=== PATIENT | male | born 1965 | race African-American/Black ===

== ENCOUNTER 2017-10-31 15:38 | Emergency (ER) | payer MEDICAID, OTHER ==
[~2017-10-31] VITALS: Ht 167.6 cm; Wt 54.5 kg
[2017-10-31] MEDS ORDERED: 0.9% SODIUM CHLORIDE 5 ML NEB SOLUTION NEB ONE (17:15)
[2017-10-31] MEDS ORDERED: IPRATROPIUM BROMIDE 0.5 MG/2.5 ML NEB SOLUTION NEB ONE (17:15)
[2017-10-31] MEDS ORDERED: ALBUTEROL SULFATE 2.5 MG/0.5 ML NEB SOLUTION NEB ONE (17:15)
[2017-10-31 18:30] VITALS: BP 114/70
== END 2017-10-31 18:30 | disposition home or self-care (01) ==
LOC: EMS 15:38
DX: J20.9 Acute bronchitis, unspecified (principal); R10.9 Unspecified abdominal pain; R11.2 Nausea with vomiting, unspecified; R20.8 Other disturbances of skin sensation; Z59.0 Homelessness
CPT/HCPCS: 71046; 81002; 94640; 99284; J7613